=== PATIENT | male | born 1990 | race Caucasian/White ===

== ENCOUNTER 2017-01-09 15:31 | Emergency (ER) | payer OTHER ==
[~2017-01-09] VITALS: Ht 180.3 cm; Wt 65.8 kg
[~2017-01-09 15:31] MED LIST: NOHOMEMEDICATIONS
[2017-01-09] MEDS ORDERED: NORCO 5-325 TA1 EACH PO (17:23)
[2017-01-09 18:45] VITALS: BP 132/69
== END 2017-01-09 18:46 | disposition home or self-care (01) ==
LOC: ER 15:31
DX: S52.591A Other fractures of lower end of right radius, initial encounter for closed fracture (principal); M32.8 Other forms of systemic lupus erythematosus; F17.210 Nicotine dependence, cigarettes, uncomplicated; F10.99 Alcohol use, unspecified with unspecified alcohol-induced disorder; W18.39XA Other fall on same level, initial encounter; Y93.89 Activity, other specified; Y92.89 Other specified places as the place of occurrence of the external cause; Y99.8 Other external cause status

== ENCOUNTER 2017-05-07 23:52 | Emergency (ER) | payer OTHER ==
[~2017-05-07] VITALS: Ht 182.9 cm; Wt 63.5 kg
[~2017-05-07 23:52] MED LIST changes: +NORCO 5-325 TA1 EACH PO
[2017-05-08 00:24] LABS: URINE BILIRUBIN NEGATIVE (Negative); URINE BLOOD NEGATIVE (Negative); URINE COLOR YELLOW; URINE GLUCOSE-RANDOM* NEGATIVE (Negative); URINE KETONES NEGATIVE (Negative); URINE NITRITE NEGATIVE (Negative); URINE PROTEIN (DIPSTICK) NEGATIVE (Negative); URINE SPECIFIC GRAVITY 1.015 (1.003-1.035); URINE UROBILINOGEN 0.2 E.U./dl (0.2-1.0)
[2017-05-08 01:16] LABS: ABSOLUTE NEUTROPHILS 4.6 thou/uL (1.4-8.2); BASOPHILS 0.5 % (0.0-2.0); EOSINOPHILS 1.6 % (0.0-3.0); HEMATOCRIT 41.8 % (42.0-52.0); MCH 28.9 pg (26.0-34.0); MCHC 33.4 g/dL (28.0-37.0); MCV 86.4 fL (80.0-100.0); MONOCYTES 4.4 % (1.0-8.0); PLATELET COUNT 166 thou/uL (150-400); POLYS 58.5 % (36.0-66.0); RBC 4.84 mil/uL (4.50-6.00); RDW 15.2 % (10.5-14.5); WBC 7.8 thou/uL (4.0-11.0)
[2017-05-08 01:18] LABS: MANUAL DIFF NO
[2017-05-08 01:24] LABS: ANION GAP 6 mmol/L (7-16); BUN 26 mg/dL (7-18); CALCIUM 8.9 mg/dL (8.5-10.1); CHLORIDE 105 mmol/L (98-107); CO2 34 mmol/L (21-32); GLUCOSE 82 mg/dL (74-106); POTASSIUM 3.9 mmol/L (3.5-5.1); SODIUM 145 mmol/L (136-145)
[2017-05-08 01:30] LABS: ALBUMIN 3.7 g/dL (3.4-5.0); ALKALINE PHOSPHATASE 50 U/L (46-116); DIRECT BILIRUBIN < 0.1 mg/dL (<0.1-0.3); SGOT 13 U/L (15-37); SGPT 22 U/L (30-65); TOTAL BILIRUBIN 0.3 mg/dL (<0.1-1.0); TOTAL PROTEIN 7.1 g/dL (6.4-8.2)
[2017-05-08 02:05] VITALS: BP 105/62
== END 2017-05-08 02:14 | disposition home or self-care (01) ==
LOC: ER 23:52
PROVIDERS: Emergency Medicine
DX: B34.9 Viral infection, unspecified (principal); N28.9 Disorder of kidney and ureter, unspecified; M79.1 Myalgia; M32.9 Systemic lupus erythematosus, unspecified; F17.210 Nicotine dependence, cigarettes, uncomplicated; F10.99 Alcohol use, unspecified with unspecified alcohol-induced disorder

== ENCOUNTER 2017-09-05 15:01 | Emergency (ER) | payer OTHER ==
[~2017-09-05] VITALS: Ht 182.9 cm; Wt 68.0 kg
== END 2017-09-05 15:54 | disposition home or self-care (01) ==
LOC: ER 15:01
DX: F19.90 Other psychoactive substance use, unspecified, uncomplicated (principal); T80.89XA Other complications following infusion, transfusion and therapeutic injection, initial encounter; L98.8 Other specified disorders of the skin and subcutaneous tissue; M79.7 Fibromyalgia; M32.9 Systemic lupus erythematosus, unspecified; F17.210 Nicotine dependence, cigarettes, uncomplicated; Y84.9 Medical procedure, unspecified as the cause of abnormal reaction of the patient, or of later complication, without mention of misadventure at the time of the procedure; Y92.89 Other specified places as the place of occurrence of the external cause

== ENCOUNTER 2019-03-21 14:44 | Emergency (ER) | payer OTHER ==
[~2019-03-21] VITALS: Ht 175.3 cm; Wt 62.6 kg
[2019-03-21 14:46] VITALS: BP 143/86
== END 2019-03-21 15:32 | disposition home or self-care (01) ==
LOC: ER 14:44
DX: G56.31 Lesion of radial nerve, right upper limb (principal); F19.10 Other psychoactive substance abuse, uncomplicated; F17.210 Nicotine dependence, cigarettes, uncomplicated; M79.7 Fibromyalgia; M32.9 Systemic lupus erythematosus, unspecified

== ENCOUNTER 2019-04-21 14:25 | Emergency (ER) | payer OTHER ==
[~2019-04-21] VITALS: Ht 182.9 cm; Wt 61.2 kg
[2019-04-21] MEDS ORDERED: ESZOPICLONE3 MG PO (15:50)
[2019-04-21] MEDS ORDERED: ALPRAZOLAM2 MG PO (15:51)
[2019-04-21] MEDS ORDERED: NEURONTIN 300300 M1 PO (15:51)
[2019-04-21] MEDS ORDERED: ZOLOFT50 MG PO (15:51)
[2019-04-21 16:30] VITALS: BP 114/62
== END 2019-04-21 16:30 | disposition home or self-care (01) ==
LOC: ER 14:25
DX: S40.812A Abrasion of left upper arm, initial encounter (principal); S40.811A Abrasion of right upper arm, initial encounter; M54.2 Cervicalgia; M25.512 Pain in left shoulder; F17.210 Nicotine dependence, cigarettes, uncomplicated; M79.7 Fibromyalgia; M32.9 Systemic lupus erythematosus, unspecified; Z79.899 Other long term (current) drug therapy; V49.88XA Car occupant (driver) (passenger) injured in other specified transport accidents, initial encounter; Y93.89 Activity, other specified; Y92.413 State road as the place of occurrence of the external cause; Y99.9 Unspecified external cause status

== ENCOUNTER 2019-04-30 12:57 | Emergency (ER) | payer OTHER ==
[~2019-04-30] VITALS: Ht 182.9 cm; Wt 68.0 kg
[~2019-04-30 12:57] MED LIST changes: +ALPRAZOLAM2 MG PO; +ESZOPICLONE3 MG PO; +NEURONTIN 300300 M1 PO; +ZOLOFT50 MG PO
[2019-04-30 12:59] VITALS: BP 122/80
[2019-04-30] MEDS ORDERED: NAPROSYN500 MG PO (13:52)
== END 2019-04-30 14:00 | disposition home or self-care (01) ==
LOC: ER 12:57
DX: M25.531 Pain in right wrist (principal); M79.7 Fibromyalgia; M32.9 Systemic lupus erythematosus, unspecified; F17.210 Nicotine dependence, cigarettes, uncomplicated; Z88.8 Allergy status to other drugs, medicaments and biological substances